=== PATIENT | female | born 1995 | race Caucasian/White ===

== ENCOUNTER 2017-11-06 13:28 | Emergency (ER) | payer OTHER ==
[~2017-11-06] VITALS: Ht 154.9 cm; Wt 54.0 kg
[2017-11-06 16:01] VITALS: BP 125/79
[2017-11-07 08:51] LABS: TREPONEMA ANTIBODY NEGATIVE (NEGATIVE)
[2017-11-07 11:17] LABS: HEPATITIS B SURFACE ANTIGEN Nonreactive
[2017-11-07 11:18] LABS: HEPATITIS C ANTIBODY Nonreactive
[2017-11-07 11:19] LABS: ANTI-HEPATITIS A VIRUS (IGM) Nonreactive; ANTI-HEPATITIS B CORE (IGM) Nonreactive; HIV-1/2 AB/AG COMBO Nonreactive
== END 2017-11-06 16:01 | disposition home or self-care (01) ==
LOC: EME 13:28
PROVIDERS: Emergency Medicine
DX: T76.21XA Adult sexual abuse, suspected, initial encounter (principal); F17.200 Nicotine dependence, unspecified, uncomplicated
CPT/HCPCS: 80074; 86780; 87389; 99281; 99283